=== PATIENT | male | born 1990 ===

== ENCOUNTER 2019-09-28 11:50 | Emergency (ER) | payer BC, OTHER, SELFPAY ==
[~2019-09-28] VITALS: Ht 177.8 cm; Wt 108.3 kg
[2019-09-28 11:59] VITALS: BP 164/115
--- NOTE | 2019-09-28 12:22 | NUR ---
PT CAME IN CO OF BODY ACHES AND SUBJECTIVE FEVER. PT WAS SENT HERE FROM WORK IN ORDER TO GET MEDICALLY CLEARED FOR WORK. PT TO BE COVID SWABBED AND PT EDUCATED ON THAT HE NEEDS TO STAY HOME AND QUARANTINE. PT VERBALIZED UNDERSTANDING OF THIS.
[2019-09-28] MEDS ORDERED: IBUPROFEN 600 MG TABLET ONE (12:38)
[2019-09-28] MEDS ORDERED: ACETAMINOPHEN 325 MG TABLET ONE (12:38)
[2019-09-28] MEDS ORDERED: IBUPROFEN 600 MG TABLET PO ONE (13:00)
[2019-09-28] MEDS ORDERED: PLEASE ENTER ALLERGIES MC SCH (13:00)
[2019-09-28] MEDS ORDERED: ACETAMINOPHEN 325 MG TABLET PO ONE (13:00)
== END 2019-09-28 13:01 | disposition home or self-care (01) ==
LOC: ED 12:53
DX: U07.1 COVID-19 (principal); M79.10 Myalgia, unspecified site
CPT/HCPCS: 36415; 87635; 99283